=== PATIENT | female | born 1955 | race Caucasian/White ===

== ENCOUNTER 2018-03-30 11:46 | Outpatient (CLI) | payer MEDICARE | END 2018-03-30 11:47 | disposition home or self-care (01) | LOC: BICMAMMO 11:46 | PROVIDERS: ATTEND Family Medicine | DX: Z12.31 Encounter for screening mammogram for malignant neoplasm of breast (principal); Z80.3 Family history of malignant neoplasm of breast | CPT/HCPCS: 77063; 77067 ==

== ENCOUNTER 2018-12-11 11:05 | Outpatient (CLI) | payer MEDICARE ==
--- NOTE | 2018-12-11 12:46 | ULT ---
Thyroid ultrasound: 12/11/2018 COMPARISON: None HISTORY: Hypothyroidism TECHNIQUE: The planar grayscale sonographic imaging of the thyroid gland obtained. FINDINGS: Thyroid isthmus measures 2 mm in AP dimension. Right lobe measures 4.2 x 1.3 x 1.2 cm and left lobe measures 3.4 x 1.3 x 1.1 cm. There is a tiny hypoechoic nodule within the inferior aspect of the right lobe measuring 7 x 4 x 6 mm . There is an additional tiny hypoechoic nodule within the superior aspect of the left lobe of the thyroid gland measuring 6 x 4 x 5 mm. IMPRESSION: Ti-Rads category 3. Given size of nodules, no further follow-up required.
== END 2018-12-11 11:06 | disposition home or self-care (01) ==
LOC: SCSULT 11:05
PROVIDERS: ATTEND Family Medicine
DX: E03.9 Hypothyroidism, unspecified (principal); E04.2 Nontoxic multinodular goiter
CPT/HCPCS: 76536

== ENCOUNTER 2019-04-02 12:48 | Outpatient (CLI) | payer MEDICARE ==
--- NOTE | 2019-04-02 13:16 | MMO ---
Bilateral MAMMO Bilat Screen [facility]. CLINICAL HISTORY: Patient is 63 years old and is seen for screening. The patient has the following family history of breast cancer: mother, at age 40. The patient has no personal history of cancer. The patient has a history of left Excisional Biopsy at age 33 - benign. VIEWS: The views performed were: bilateral craniocaudal with tomosynthesis; bilateral mediolateral oblique with tomosynthesis; and left exaggerated craniocaudal. FILMS COMPARED: The present examination has been compared to prior imaging studies performed at [facility] on 12/18/2014, 01/07/2016, 03/15/2017 and 03/30/2018. This study has been interpreted with the assistance of computer-aided detection. MAMMOGRAM FINDINGS: The breasts are heterogeneously dense, which could obscure a lesion on mammography. There are stable benign appearing calcifications seen in both breasts. There are no suspicious masses, suspicious calcifications, or new areas of architectural distortion. IMPRESSION: THERE IS NO MAMMOGRAPHIC EVIDENCE OF MALIGNANCY. A ROUTINE FOLLOW-UP MAMMOGRAM IN 1 YEAR IS RECOMMENDED. THE RESULTS OF THIS EXAM WERE SENT TO THE PATIENT. ACR BI-RADS Category 2 - Benign finding MAMMOGRAPHY NOTE: 1. A negative mammogram report should not delay a biopsy if a dominant of clinically suspicious mass is present. 2. Approximately 10% to 15% of breast cancers are not detected by mammography. 3. Adenosis and dense breasts may obscure an underlying neoplasm. Reported by: KATERINA OCASIO MD Electonically Signed: [id number]
== END 2019-04-02 12:49 | disposition home or self-care (01) ==
LOC: BICMAMMO 12:48
PROVIDERS: ATTEND Family Medicine
DX: Z12.31 Encounter for screening mammogram for malignant neoplasm of breast (principal); Z91.89 Other specified personal risk factors, not elsewhere classified; Z80.3 Family history of malignant neoplasm of breast
CPT/HCPCS: 77063; 77067

== ENCOUNTER 2020-05-23 11:15 | Outpatient (CLI) | payer MEDICARE | END 2020-05-23 11:16 | disposition home or self-care (01) | LOC: BICMAMMO 11:15 | PROVIDERS: ATTEND Family Medicine | DX: Z12.31 Encounter for screening mammogram for malignant neoplasm of breast (principal); Z80.3 Family history of malignant neoplasm of breast; Z91.89 Other specified personal risk factors, not elsewhere classified; Q83.9 Congenital malformation of breast, unspecified | CPT/HCPCS: 77063; 77067 ==

== ENCOUNTER 2020-05-29 09:06 | Outpatient (CLI) | payer MEDICARE ==
--- NOTE | 2020-05-29 10:06 | MMO ---
Right Breast MAMMO Unilat Diag [facility]. CLINICAL HISTORY: Patient is 64 years old and is seen for diagnostic exam. The patient has the following family history of breast cancer: mother, at age 40. The patient has no personal history of cancer. The patient has a history of left Excisional Biopsy at age 33 - benign. VIEWS: The views performed were: right mediolateral oblique spot compression with tomosynthesis and right mediolateral with tomosynthesis. FILMS COMPARED: The present examination has been compared to prior imaging studies performed at [facility] on 03/30/2018, 04/02/2019, 05/23/2020 and 05/29/2020. This study has been interpreted with the assistance of computer-aided detection. MAMMOGRAM FINDINGS: The breast is heterogeneously dense, which could obscure a lesion on mammography. The region of architecural distortion is less prominent on addl views. US shows no suspicious abnormality. there is a 5mm cyst at 9:00 on US. IMPRESSION: FINDING IN THE RIGHT BREAST REQUIRES ADDITIONAL EVALUATION. BREAST MRI IS RECOMMENDED. THE RESULTS OF THIS EXAM WERE SENT TO THE PATIENT. ACR BI-RADS Category 0 - Incomplete: Need additional imaging evaluation. [facility] will notify the patient of the need for additional imaging services. MAMMOGRAPHY NOTE: 1. A negative mammogram report should not delay a biopsy if a dominant of clinically suspicious mass is present. 2. Approximately 10% to 15% of breast cancers are not detected by mammography. 3. Adenosis and dense breasts may obscure an underlying neoplasm. Reported by: ADITYA POLANCO MD Electonically Signed: [id number]
--- NOTE | 2020-05-29 13:06 | ULT ---
LIMITED RIGHT BREAST ULTRASOUND: HISTORY: Abnormal mammogram of 05/23/2020. FINDINGS: Correlation is made with mammograms of 05/23/2020 and today. Sonographic evaluation of the right upper breast demonstrates no suspicious mass. There is a [address] at the 9 o'clock position of the right breast, 1 cm from the nipple. IMPRESSION: BIRADS category 0 - incomplete assessment. Recommend evaluation of the mammographic finding with ramos ast MRI. POS: OFF
== END 2020-05-29 09:07 | disposition home or self-care (01) ==
LOC: BICMAMMO 09:06
PROVIDERS: ATTEND Family Medicine
DX: R92.8 Other abnormal and inconclusive findings on diagnostic imaging of breast (principal); N60.01 Solitary cyst of right breast
CPT/HCPCS: 76642; 77065; G0279

== ENCOUNTER 2020-06-18 10:50 | Outpatient (CLI) | payer MEDICARE | END 2020-06-18 10:51 | disposition home or self-care (01) | LOC: BICMRI 10:50 | PROVIDERS: ATTEND Family Medicine | DX: N60.01 Solitary cyst of right breast (principal) | CPT/HCPCS: 82565 ==

== ENCOUNTER 2021-01-19 09:31 | Outpatient (CLI) | payer MEDICARE | END 2021-01-19 09:32 | disposition home or self-care (01) | LOC: BICMAMMO 09:31 | PROVIDERS: ATTEND Specialist | DX: N60.01 Solitary cyst of right breast (principal) | CPT/HCPCS: 76642; 77065; G0279 ==

== ENCOUNTER 2022-02-09 10:08 | Outpatient (CLI) | payer MEDICARE | END 2022-02-09 10:09 | disposition home or self-care (01) | LOC: BICMAMMO 10:08 | PROVIDERS: ATTEND Family Medicine | DX: Z12.31 Encounter for screening mammogram for malignant neoplasm of breast (principal); Z91.89 Other specified personal risk factors, not elsewhere classified; Z80.3 Family history of malignant neoplasm of breast | CPT/HCPCS: 77063; 77067 ==

== ENCOUNTER 2022-05-19 12:07 | Outpatient (CLI) | payer MEDICARE ==
[~2022-05-19 12:07] MED LIST: Iopamidol 370 76% 100 ML VIAL ONE
== END 2022-05-19 12:08 | disposition home or self-care (01) ==
LOC: CT 12:07
PROVIDERS: ATTEND Nurse Practitioner Family
DX: R91.1 Solitary pulmonary nodule (principal); K80.20 Calculus of gallbladder without cholecystitis without obstruction
CPT/HCPCS: 71270; 82565; Q9967

== ENCOUNTER 2023-03-31 09:49 | Outpatient (CLI) | payer MEDICARE | END 2023-03-31 09:50 | disposition home or self-care (01) | LOC: SCSCT 09:49 | PROVIDERS: ATTEND Family Medicine | DX: R91.1 Solitary pulmonary nodule (principal) | CPT/HCPCS: 71250 ==

== ENCOUNTER 2024-05-24 09:03 | Outpatient (CLI) | payer MEDICARE | END 2024-05-24 09:04 | disposition home or self-care (01) | LOC: SCSRAD 09:03 | PROVIDERS: ATTEND Family Medicine | DX: J40 Bronchitis, not specified as acute or chronic (principal) | CPT/HCPCS: 71046 ==